=== PATIENT | male | born 1990 | race Caucasian/White ===

== ENCOUNTER 2017-11-17 06:28 | Emergency (ER) | payer BC ==
[2017-11-17] MEDS ORDERED: Ibuprofen TAB* 600 MG PO ONE (07:59)
[2017-11-17 08:36] VITALS: BP 179/114
--- NOTE | 2017-11-17 08:45 | ED ---
Mu Silverio Stephanie, scribed for Pedro Nelson MD on 11/17/17 at 0804 . Back Pain - HPI Summary HPI Summary: The pt is a 27 y/o M presenting to the ED with c/o lower back pain that began at 03:00 today. Symptoms include slight R LE weakness, numbness and tingling. Aggravating factors include raising arms bilaterally overhead. The pt states he slipped on ice on 11/12/17. He reports no pain s/p accident until 11/15/17. He states he attempted to treat his pain with ice packs and heat packs but his pain has not resolved. - History of Current Complaint Chief Complaint: EDBackInjuryPain Stated Complaint: BACK PAIN Time Seen by Provider: 11/17/17 07:50 Hx Obtained From: Patient Onset/Duration: Sudden Onset - s/p fall, Still Present Onset/Duration: Started Days Ago - 2, Still Present Timing: Constant Back Pain Location: Is Discrete @ - lower back Severity Currently: Moderate Pain Intensity: 8 Pain Scale Used: 0-10 Numeric Aggravating Symptom(s): Other - raising UE bilaterally overhead Alleviating Symptom(s): Nothing Associated Signs And Symptoms: Positive: Other - R LE tingling and numbness, slight R LE weakness - Allergies/Home Medications Allergies/Adverse Reactions: Allergies Allergy/AdvReac Type Severity Reaction Status Date / Time No Known Allergies Allergy Verified 11/17/17 06:33 PMH/Surg Hx/FS Hx/Imm Hx Endocrine/Hematology History: Denies: Hx Diabetes Cardiovascular History: Denies: Hx Hypertension History: Denies: Hx Renal Disease Musculoskeletal History: Reports: Hx Back Problems - chronic back pain Sensory History: Reports: Hx Contacts or Glasses Opthamlomology History: Reports: Hx Contacts or Glasses - Surgical History Surgery Procedure, Year, and Place: tonsillectomy Hx Anesthesia Reactions: No Infectious Disease History: No Infectious Disease History: Denies: Hx Human Immunodeficiency Virus (HIV), Hx of Known/Suspected MRSA, Traveled Outside the [place] in Last 30 Days - Family History Known Family History: Positive: Cardiac Disease, Hypertension, Diabetes - Social History Occupation: Employed Full-time Lives: With Family Alcohol Use: Occasionally Hx Substance Use: No Substance Use Type: Reports: None Smoking Status (MU): Former Smoker Type: Cigarettes, Cigars Amount Used/How Often: 2/week Length of Time of Smoking/Using Tobacco: several years Have You Smoked in the Last Year: Yes Review of Systems Negative: Fever Positive: Other - lower back pain Positive: Weakness - R LE, Numbness - R LE All Other Systems Reviewed And Are Negative: Yes Physical Exam - Summary Physical Exam Summary: General: well-appearing, no pain distress Skin: warm, color reflects adequate perfusion, dry Head: normal Eyes: EOMI, MIMA ENT: normal Neck: supple, nontender Respiratory: CTA, breath sounds present Cardiovascular: RRR Abdomen: soft, nontender Bowel: present Musculoskeletal: strength/ROM intact, tenderness in lower back along paraspinous muscles, positive pain with R hip flexion Neurological: normal, sensory/motor intact, A&O x3 Psychological: affect/mood appropriate Triage Information Reviewed: Yes Vital Signs On Initial Exam: Initial Vitals Temp Pulse Resp BP Pulse Ox 97.6 F 113 18 153/105 96 11/17/17 06:31 11/17/17 06:31 11/17/17 06:31 11/17/17 06:31 11/17/17 06:31 Vital Signs Reviewed: Yes Diagnostics - Vital Signs Vital Signs Temp Pulse Resp BP Pulse Ox 11/17/17 06:31 97.6 F 113 18 153/105 96 - Laboratory Lab Statement: Any lab studies that have been ordered have been reviewed, and results considered in the medical decision making process. Re-Evaluation - Re-Evaluation First Eval Re-Evaluation Time: 08:06 Change: Unchanged - ED physician discusses pain management and discharge with the pt. The pt understands and agrees with discharge. Back Pain Course/Dx - Course Course Of Treatment: BP noted and advised to follow up with PCP. NO NEUROLOGIC DEFICITS ON EXAM OR BY HX. F/U PMD; RETURN IF WORSE. - Diagnoses Provider Diagnoses: Elevated blood pressure reading without diagnosis of hypertension, Low back pain radiating to right leg Discharge - Sign-Out/Discharge Documenting (check all that apply): Discharge - Discharge Plan Condition: Stable Disposition: HOME Prescriptions: Cyclobenzaprine TAB* [Flexeril 10 MG TAB*] 10 mg PO TID PRN #15 tab MDD 3 PRN Reason: Pain Patient Education Materials: Low Back Strain (ED), Lumbar Radiculopathy (ED) Referrals: Lewis Hoang MD [Primary Care Provider] - Additional Instructions: Your blood pressure was elevated during todays visit; please follow up with your primary care provider within a week for further evaluation. - Billing Disposition and Condition Condition: STABLE Disposition: HOME The documentation as recorded by the Mu bowens Stephanie accurately reflects the service I personally performed and the decisions made by me, Pedro Nelson MD.
== END 2017-11-17 08:35 | disposition home or self-care (01) ==
LOC: ED 06:28
DX: M54.5 Low back pain (principal); Z87.891 Personal history of nicotine dependence; R53.1 Weakness; M79.604 Pain in right leg; R03.0 Elevated blood-pressure reading, without diagnosis of hypertension
CPT/HCPCS: 99281

== ENCOUNTER 2019-06-16 09:00 | Emergency (ER) | payer BC ==
[2019-06-16] MEDS ORDERED: predniSONE TAB* 50 MG PO ONE (09:48)
[2019-06-16] MEDS ORDERED: Ketorolac *IM* INJ* 60 MG/2 ML VIAL IM ONE (09:48)
[2019-06-16] MEDS ORDERED: Cyclobenzaprine TAB* 10 MG PO ONE (09:48)
[2019-06-16 12:06] VITALS: BP 123/88
--- NOTE | 2019-06-16 12:35 | ED ---
Back Pain - HPI Summary HPI Summary: This patient is a 28-year-old male presenting to the ED with acute onset low back pain. He states he was bending over to pick something up earlier this morning while at work, felt a "pop" and immediately had numbness and tingling down the bilateral lower extremities. Pain is worse to the thighs and to the feet, but he is also endorsing pain, numbness, tingling to the buttocks. Denies any bladder or bowel dysfunction. He denies any perennial pain, numbness or tingling or dulled sensation to the inner thighs. Otherwise healthy , however obese. Denies other sxs. Takes no medications. Remains ambulatory. Denies limitations with ROM. - History of Current Complaint Chief Complaint: EDBackInjuryPain Stated Complaint: BACK PAIN/LEG NUMBNESS PER PT Time Seen by Provider: 06/16/19 09:20 Hx Obtained From: Patient Onset/Duration: Sudden Onset Onset/Duration: Started Hours Ago Timing: Constant Back Pain Location: Is Discrete @ - low back L5 Pain Intensity: 5 Pain Scale Used: 0-10 Numeric Character: Aching Aggravating Symptom(s): Movement, Lifting, Bending, Walking Alleviating Symptom(s): Rest, Position Associated Signs And Symptoms: Positive: Numbness, Tingling. Negative: Swelling , Redness, Bruising, Weakness, Bladder Incontinence, Bowel Incontinence, Weight Loss, Pain with Weight Bearing - Risk Factors AAA Risk Factors: Negative TAD Risk Factors: Negative Cauda Equina Risk Factors: Negative Epidural Abscess Risk Factors: Negative - Allergies/Home Medications Allergies/Adverse Reactions: Allergies Allergy/AdvReac Type Severity Reaction Status Date / Time No Known Allergies Allergy Verified 06/16/19 09:04 PMH/Surg Hx/FS Hx/Imm Hx Previously Healthy: Yes Endocrine/Hematology History: Denies: Hx Diabetes Cardiovascular History: Denies: Hx Hypertension History: Denies: Hx Renal Disease Musculoskeletal History: Reports: Hx Back Problems - chronic back pain Sensory History: Reports: Hx Contacts or Glasses Opthamlomology History: Reports: Hx Contacts or Glasses - Surgical History Surgery Procedure, Year, and Place: tonsillectomy Hx Anesthesia Reactions: No - Immunization History Hx Pertussis Vaccination: No Immunizations Up to Date: Yes Infectious Disease History: No Infectious Disease History: Denies: Hx Human Immunodeficiency Virus (HIV), Hx of Known/Suspected MRSA, Traveled Outside the [place] in Last 30 Days - Family History Known Family History: Positive: Cardiac Disease, Hypertension, Diabetes - Social History Occupation: Employed Full-time Lives: With Family Alcohol Use: Occasionally Hx Substance Use: No Substance Use Type: Reports: None Hx Tobacco Use: Yes Smoking Status (MU): Light Every Day Tobacco Smoker Type: Cigarettes, Cigars Amount Used/How Often: 2/week Length of Time of Smoking/Using Tobacco: several years Have You Smoked in the Last Year: Yes Review of Systems Negative: Fever, Chills, Fatigue, Skin Diaphoresis Negative: Palpitations, Chest Pain Negative: Shortness Of Breath, Cough Genitourinary: Negative Positive: no symptoms reported, see HPI Positive: Arthralgia - acute low back pain radiating to the bilateral lower extremities. Negative: Myalgia Skin: Negative Neurological: Negative All Other Systems Reviewed And Are Negative: Yes Physical Exam Triage Information Reviewed: Yes Vital Signs On Initial Exam: Initial Vitals Temp Pulse Resp BP Pulse Ox 97.4 F 112 18 159/107 96 06/16/19 09:02 06/16/19 09:02 06/16/19 09:02 06/16/19 09:02 06/16/19 09:02 Vital Signs Reviewed: Yes Appearance: Positive: Well-Appearing, Well-Nourished Skin: Positive: Skin Color Reflects Adequate Perfusion Head/Face: Positive: Normal Head/Face Inspection Eyes: Positive: EOMI, Conjunctiva Clear Neck: Positive: Supple, No Lymphadenopathy Respiratory/Lung Sounds: Positive: Clear to Auscultation, Breath Sounds Present Cardiovascular: Positive: RRR, Pulses are Symmetrical in both Upper and Lower Extremities Musculoskeletal: Positive: Pain @ - acute low back pain Neurological: Positive: Speech Normal, Other - no numbness/tingling to the bilateral lower ext, gait normal Psychiatric: Positive: Affect/Mood Appropriate Procedures - Sedation Patient Received Moderate/Deep Sedation with Procedure: No Diagnostics - Vital Signs Vital Signs Temp Pulse Resp BP Pulse Ox 06/16/19 12:05 97.0 F 93 16 123/88 94 06/16/19 09:02 97.4 F 112 18 159/107 96 - Laboratory Lab Statement: Any lab studies that have been ordered have been reviewed, and results considered in the medical decision making process. Back Pain Course/Dx - Course Course Of Treatment: Patient is evaluated for acute onset low back pain which incurred while bending over to pick something up or work. He has never injured the back in the past. He is endorsing low back pain which radiates to the bilateral buttocks, bilateral lower extremities affecting the thighs and the plantar surfaces of the feet. He is ambulating well. No other neuro symptoms. Pt has full ROM and strength bilaterally. CT lumber obtained: No fracture of the lumbar spine is noted. Broad based protrusion at L4-L5 and L5-S1 flattening the thecal sac. Discussed these results with the patient. Given short course of prednisone 50 mg, Flexeril twice daily as needed, Toradol 4 times daily as needed for pain and inflammation. Encouraged low back exercises , rest and follow-up to Dr. Lockhart, neurosurgery if symptoms persist. - Diagnoses Differential Diagnosis/HQI/PQRI: Positive: Compressive Cord Syndrome, Herniated Disc, Other - sciatica, lumbar radiculopathy, back pain Provider Diagnoses: Protrusion of intervertebral disc Discharge ED - Sign-Out/Discharge Documenting (check all that apply): Patient Departure - Discharge Plan Condition: Stable Disposition: HOME Prescriptions: Cyclobenzaprine TAB* [Flexeril TAB*] 10 mg PO BID PRN #10 tab MDD 2 PRN Reason: Pain - Mild Ketorolac TAB * [Toradol TAB *] 10 mg PO Q6H #16 tab predniSONE TAB* [Deltasone TAB*] 50 mg PO DAILY #4 tab MDD 1 Patient Education Materials: Lumbar Disc Herniation (ED) Forms: *Work Release Referrals: Lewis Hoang MD [Primary Care Provider] - 3 Days Ludmila Lockhart MD [Medical Doctor] - Additional Instructions: Prednisone once daily 4 days, start this medication in the morning Flexeril twice daily 5 days, do not work, operate machinery or drive will taking this medication Toradol 4 times daily 4 days, do not take NSAIDs including naproxen, ibuprofen or Aleve while taking this medication If any symptoms become worse, he may need to follow-up with Dr. Lockhart - Billing Disposition and Condition Condition: STABLE Disposition: Home
== END 2019-06-16 12:05 | disposition home or self-care (01) ==
LOC: ED 09:00
DX: M51.26 Other intervertebral disc displacement, lumbar region (principal); F17.210 Nicotine dependence, cigarettes, uncomplicated
CPT/HCPCS: 72131; 96372; 99282; A9270-GY; J1885; J7512